=== PATIENT | female | born 2000 | race Caucasian/White ===

== ENCOUNTER 2020-08-21 20:51 | Emergency (ER) | payer OTHER, SELFPAY ==
[2020-08-21] MEDS ORDERED: Iopamidol 370 76% 100 ML VIAL IV ONE (20:52)
[2020-08-21] MEDS ORDERED: Sodium Chloride 0.9% 2,000 ML ONE (21:34)
[2020-08-21] MEDS ORDERED: Ketorolac Tromethamine 30 MG/ML VIAL ONE (21:34)
[2020-08-21] MEDS ORDERED: Ondansetron PF 4 MG/2 ML Vial ONE (21:34)
[2020-08-21 21:37] LABS: #Lymphocytes 0.5 thou/uL (1.20-3.40); #Neutrophils 13.3 thou/uL (1.40-6.50); %Basophils 0.2 % (0.0-1.0); %Eosinophils 0.1 % (0.0-10.0); %Lymphocytes 3.6 % (28.0-48.0); %Monocytes 6.5 % (0.0-4.0); %Neutrophils 89.7 % (31.0-61.0); Hemoglobin 17.4 g/dL (12.0-16.0); Mean Corpuscular HGB CONC 32.3 g/dL (32.0-36.0); Mean Corpuscular Hemoglobin 29.2 pg (25.0-35.0); Mean Corpuscular Volume 90.4 fL (78.0-98.0); Mean Platelet Volume 10.2 fL (7.4-10.4); Platelet Count 280 thou/uL (130-400); RBC Distribution Width 11.5 % (11.5-14.5); Red Blood Cell (RBC) Count 5.95 mill/uL (4.00-5.20); White Blood Cell (WBC) Count 14.8 thou/uL (4.8-10.8)
[2020-08-21] MEDS ORDERED: Metoclopramide HCl 10 MG/2 ML VIAL ONE (21:37)
[2020-08-21 21:54] LABS: BHCG - Serum Negative (NEGATIVE); Pregs Control Background? CLEAR/WHITE (CLR/WHITE); Pregs Control Bar Appear? YES (CONTROL BAR)
[2020-08-21 21:56] LABS: ALT (SGPT) 24 U/L (8-55); AST (SGOT) 22 U/L (5-34); Albumin 4.6 g/dL (3.5-5.0); Alkaline Phosphatase 89 U/L (40-100); Anion Gap 19 mmol/L (10-20); BUN (Urea Nitrogen) 15 mg/dL (7.0-18.7); Bilirubin, Total 0.9 mg/dL (0.2-1.2); Calc. Creatinine Clearance 0 mL/min (70-130); Calcium 9.2 mg/dL (7.8-10.44); Carbon Dioxide 23 mmol/L (22-29); Chloride 105 mmol/L (98-107); Globulin 3.5 g/dL (2.4-3.5); Glucose 133 mg/dL (70-105); Lipase 8 U/L (8-78); Potassium 3.8 mmol/L (3.5-5.1); Protein, Total 8.1 g/dL (6.0-8.3); Sodium 143 mmol/L (136-145)
[2020-08-21 23:04] LABS: Bilirubin Negative (Negative); Blood, Urine Negative (Negative); Clarity Clear (Clear); Glucose, Urine (Dipstick) Negative (Negative); Ketone, Urine Negative (Negative); Leukocyte Negative (Negative); Nitrite Negative (Negative); Protein, Urine (Dipstick) Negative (Neg-Trace); Specific Gravity, Urine 1.015 (1.005-1.030); Urobilinogen 0.2 mg/dL (Less than 2)
[2020-08-21] MEDS ORDERED: Sodium Chloride 0.9% 1,000 ML ONE (23:36)
[2020-08-22] MEDS ORDERED: Aspirin 325 MG TAB ONE (01:16)
[2020-08-22] MEDS ORDERED: Sodium Chloride 0.9% 1,000 ML ONE (01:48)
[2020-08-22 02:09] LABS: Amphetamine Not Detected (NotDetected); Barbiturates Screen Not Detected (NotDetected); Benzodiazepine Screen Not Detected (NotDetected); Cocaine Metabolite Screen Not Detected (NotDetected); Medtox Control Line Valid? VALID (VALID); Methadone Not Detected (NotDetected); Methamphetamine Not Detected (NotDetected); Opiate Screen Not Detected (NotDetected); Oxycodone Screen Not Detected (NotDetected); Phencyclidine (PCP) Not Detected (NotDetected); THC/Cannabinoid Screen Not Detected (NotDetected); Tricyclic Screen Not Detected (NotDetected)
[2020-08-22] MEDS ORDERED: metroNIDAZOLE 500 MG/100 ML BAG ONE (02:17)
== END 2020-08-22 03:24 | disposition short-term general hospital (02) ==
LOC: MADERS 20:51
DX: K52.9 Noninfective gastroenteritis and colitis, unspecified (principal); R79.89 Other specified abnormal findings of blood chemistry; R00.0 Tachycardia, unspecified; Z79.899 Other long term (current) drug therapy
CPT/HCPCS: 74177; 80053; 80306; 81003; 82550; 83605; 83690; 84443; 84484; 84703; 85025; 85379; 87040; 87086; 93005; 96365; 96368; 96375; J1885; J1956; J2405; J2765; J7050; Q9967